=== PATIENT | female | born 1970 | race Caucasian/White ===

== ENCOUNTER → 2018-12-17 16:30 | Outpatient (CLI) | payer OTHER, SELFPAY ==
[2018-12-20 11:57] LABS: HPV Reflexed? NOT INDICATED
== END ==
PROVIDERS: Visit Provider Obstetrics & Gynecology
DX: Z12.4 Encounter for screening for malignant neoplasm of cervix (principal)
CPT/HCPCS: 88175; G0145

== ENCOUNTER → 2021-02-03 12:18 | Outpatient (CLI) | payer BC, SELFPAY ==
--- NOTE | 2021-02-03 12:23 | BI_ITS ---
MAMMOGRAPHY - BILATERAL DIAGNOSTIC REASON FOR EXAM: Female, 50 years old. One-week history of left breast discharge. PERTINENT HISTORY: Non-contributory. History of prior left surgical intervention of the duct. TECHNIQUE: Digital bilateral breast neil (3D mammographic acquisition) in the CC and MLO projections. 2-D mediolateral oblique (MLO) and craniocaudad (CC) views of both breasts were obtained. CAD: Full Field Digital Mammography with Computer Added Detection was performed. COMPARISON: Comparison is made with prior study dated 03/18/2014. FINDINGS: Breast Composition: The breasts are heterogeneously dense, which may obscure small masses. Asymmetry of breast tissue in the retroareolar region of the left breast. Correlation with ultrasound is recommended. A tissue clip marker is seen in the slightly upper lateral aspect of the left breast as well as in the superior lateral region of the periareolar area. No other significant abnormalities are identified. BI/DIAG MAMM W/CAD, BILAT IMPRESSION: Asymmetrical density in the retroareolar region of the left breast as described. With the patient''s history of breast discharge, correlation with ultrasound is recommended. Status post left breast biopsy. ASSESSMENT CATEGORY: BIRADS Category 0: Incomplete. Need additional imaging evaluation. A letter regarding these results will be sent to the patient by the facility within 30 days. Approximately 10% of breast cancers are not detected by mammography. A normal mammogram should not delay biopsy of a clinically suspicious abnormality. Electronically Signed: Warren Cruz MD at 13:55 EDT , Service support ,
--- NOTE | 2021-02-03 13:40 | US_ITS ---
STUDY: ULTRASOUND BREAST - LEFT REASON FOR EXAM: Female, 50 years old. Abnormal screening mammogram. TECHNIQUE: Axial and longitudinal images of the LEFT breast were performed with a high resolution ultrasound transducer. # OF IMAGES: 47 COMPARISON: Comparison is made with prior mammogram done earlier today. FINDINGS: LEFT Breast: There is a 4 mm x 5 mm x 3 mm hypoechoic nodule at the 12 o''clock position of the breast at 1 cm from the nipple. This is not a typical cyst. A biopsy is recommended. US/Breast Limited Unilateral IMPRESSION: 4 mm x 5 mm x 3 mm hypoechoic nodule at the 12 o''clock position of the breast at 17 from nipple. A biopsy is recommended. ASSESSMENT CATEGORY: BIRADS Category 2: Benign. A letter regarding these results will be sent to the patient by the facility within 30 days. Electronically Signed: Warren Cruz MD at 14:21 EDT , Service support ,
== END ==
PROVIDERS: Referring Provider Obstetrics & Gynecology; Visit Provider Obstetrics & Gynecology
DX: N64.52 Nipple discharge (principal); N63.21 Unspecified lump in the left breast, upper outer quadrant
CPT/HCPCS: 76642; 77062; 77066; G0279

== ENCOUNTER 2021-06-13 17:48 | Emergency (ER) | payer BC, SELFPAY ==
[2021-06-13 17:50] VITALS: BP 177/98; PULSE 93; RESP 18; TEMP 36.6; O2SAT 96; BMI 35.9
--- NOTE | 2021-06-13 19:30 | EKG12_ITS ---
Test Reason : DYSRHYTHMIA Blood Pressure : / mmHG Vent. Rate : 082 BPM Atrial Rate : 082 BPM P-R Int : 144 ms QRS Dur : 102 ms QT Int : 410 ms P-R-T Axes : 010 -25 008 degrees QTc Int : 479 ms Normal sinus rhythm Normal ECG Confirmed by FIOR MCINTOSH, KARO ([id number]), website/blog editor JOSE DE JESUS LIRA ([id number]) on 06/14/2021 1:25:46 PM Referred By: STONE Confirmed By:KARO CHILDRESS MD
--- NOTE | 2021-06-13 19:31 | EX.ED.DYSGE1 ---
HPI History of Present Illness Chief Complaint: Hypertension Detail of Chief Complaint: High blood pressure and nosebleeds Informant: patient Narrative Narrative: Patient presents to the emergency department complaint of elevated blood pressure that was noted today. Patient states that she had a nosebleed yesterday that stopped relatively quickly from the right side of her nose. Patient had another nosebleed today that again stopped relatively quickly but she went to the tent at the [place] where the [employer] [place] was and they checked her blood pressure and noted that it was elevated. While lying down at rest her pressure was 160 systolic but when she try to stand up and they were gone to discharge her her repeat blood pressure was 240/140. She denies chest pain or shortness of breath. She denies headache. Patient states that she has been under a lot of stress and has also broken out in the cold sores on her lips. She is currently not being treated for blood pressure. She does have history of narcolepsy and cataplexy and is currently being treated with Vyvanse. Patient normally does not get nosebleeds. Prior similar symptoms: No PFSH PFS Medical History (Updated 06/13/21 @ 21:[address] Lina Quiroga, DO) Narcolepsy Home Medications lisdexamfetamine [Vyvanse] 70 mg PO DAILY 06/13/21 [History Last Taken Unknown] lisinopril-hydrochlorothiazide 1 tab PO DAILY #30 tab 06/13/21 [Rx Last Taken Unknown] sodium oxybate [Xyrem] 500 mg PO BID 06/13/21 [History Last Taken Unknown] Allergy/AdvReac Type Severity Reaction Status Date / Time No Known Allergies Allergy Verified 06/13/21 19:10 Social History Smoking Status: Never smoker ROS ROS ED Constitutional Constitutional ED: Reports systems reviewed and no addt'l complaints, except as documented; Denies body ache(s), change in weight or chills Eyes Eyes: Denies acute decrease in peripheral vision, change in vision, double vision or loss of vision ENT ENT ED: Reports none and other Details: Nosebleed from right side of nose ; Denies ear pain, lip swelling, loss taste/smell, neck pain, otalgia or sore throat Cardiovascular Cardiovascular: Reports none; Denies abdominal pain, chest pain with activity, leg edema, lightheadedness, palpitations, rapid heart rate or syncope Respiratory/Chest Respiratory/Chest: Reports none; Denies change in mental status, dry cough, dyspnea, hemoptysis, shortness of breath at rest or shortness of breath with exertion Gastrointestinal Gastrointestinal: Reports none; Denies abdominal pain, change in stool character, diarrhea, hematemesis, hematochezia, melena, rectal bleeding or vomiting Genitourinary Genitourinary ED: Reports none; Denies abdominal discomfort, anuria, dysuria, genital pain or polyuria Musculoskeletal Musculoskeletal: Reports none; Denies arthralgias, back pain, difficulty walking, extremity pain, muscle weakness or myalgias Integumentary Reports none; Denies abscess or rash Neurologic Neurologic: Reports none and other Details: Migraines off and on ; Denies abnormal gait, confusion, focal weakness, frequent falls, headache(s), loss of vision, numbness, paresthesias, radicular pain, vertigo or weakness Psychiatric Psychiatric: Reports systems reviewed and no addt'l complaints, except as documented and none; Denies behavioral changes, confusion, difficulty concentrating, hallucinations, suicidal ideation, tactile hallucinations or visual hallucinations Endocrine Endocrinology: Denies none, cold intolerance, excessive sweating, fatigue or heat intolerance Hematologic/Lymphatic Hematologic/Lymphatic: Reports none; Denies anemia, easy bleeding or easy bruising Allergic/Immunologic Allergic/Immunologic ED: Denies as per HPI, none, lip swelling, mouth swelling, throat swelling, tongue swelling or hives EXAM Physical Exam Const Vital Signs: 06/13/21 17:50 06/13/21 19:12 06/13/21 19:49 Temperature 98 F Temperature Source Temporal Pulse Rate 93 88 Respiratory Rate 18 18 Respiratory Effort Normal Non-Labored Respiratory Pattern Normal Blood Pressure 177/98 H 170/97 H Blood Pressure Mean 124 121 Pulse Ox 96 100 Oxygen Delivery Method Room Air Room Air 06/13/21 21:00 Temperature Temperature Source Pulse Rate 77 Respiratory Rate 17 Respiratory Effort Respiratory Pattern Blood Pressure 175/94 H Blood Pressure Mean 121 Pulse Ox 95 Oxygen Delivery Method Room Air Positive well nourished and well developed General Appearance ED: well developed and NAD HEENT Reports TM's clear and moist mucous membranes HEENT Narrative: Patient has some dried blood in the right nasal vault without evidence of any active bleeding. I cannot appreciate the source of the bleeding. normocephalic and atraumatic; Negative for trauma or tenderness Tympanic Membrane ED: Yes TM's clear Eyes PERRL and EOMs intact bilaterally General Eye ED: Negative for pale conjunctiva or scleral icterus Neck no lymphadenopathy, supple and no JVD General: Negative for tenderness Chest Wall inspection of chest normal and palpation of chest normal Chest: Negative for tenderness Resp normal respiratory effort and clear to auscultation bilaterally Effort and Inspection: Negative for respiratory distress or pain with movement Auscultation: Negative for rhonchi, wheezes or diminished lung sounds Cardio regular rate, regular rhythm, S1 normal heart sound, S2 normal heart sound and no murmurs Peripheral Pulses: pulses 2+ throughout GI normal to inspection, nondistended, normoactive bowel sounds, soft to palpation, non-tender, non-distended and no masses Back/Spine no CVA tenderness and no thoracic nor lumbar tenderness Extremity normal to inspection General Extremety ED: Negative for edema General Extremity: Negative for edema Neuro oriented x3, CN's II-XII intact bilaterally, no sensory deficits noted and gait normal Sensorium / Orientation: awake, alert, oriented to person, oriented to place and oriented to time Motor Exam: strength 5/5 throughout and strength abnormal Psych mental status grossly normal Skin no rashes or lesions noted and no wounds MDM MDM MDM Narrative Medical decision making narrative: Patient's blood pressures remained steady without any treatment in 170s to 160 systolic over 90s diastolic. Work-up in the emergency department otherwise unremarkable. Case was discussed with primary care physician telephonic rn for no doc Dr. Reyes who will see patient in follow-up. I will start patient on lisinopril and hydrochlorothiazide combo. Patient advised to keep track of her blood pressures. Patient to return if chest pain, shortness of breath, severe headaches, or conditions worsen anyway. Lab Data Attestation: I reviewed the patient's lab results. Labs: Laboratory Results - last 24 hr 06/13/21 06/13/21 06/13/21 19:20 19:50 19:50 WBC 9.8 RBC 4.60 Hgb 12.9 Hct 39.7 MCV 86.3 MCH 28.0 MCHC 32.5 RDW Std Deviation 40.1 RDW Coeff of Emilee 12.7 Plt Count 343 MPV 9.7 Immature Gran % (Auto) 0.300 Neut % (Auto) 66.2 Lymph % (Auto) 26.2 Crowley % (Auto) 6.3 Eos % (Auto) 0.6 Baso % (Auto) 0.4 Absolute Neuts (auto) 6.5 Absolute Lymphs (auto) 2.57 Nucleated RBC % 0 Sodium 140 Potassium 4.2 Chloride 107 Carbon Dioxide 25.0 Anion Gap 8 BUN 13 Creatinine 0.78 Estim Creat Clear Calc 94.35 Est GFR (MDRD) Af Amer 101 Est GFR (MDRD) Non-Af 83 BUN/Creatinine Ratio 16.7 Glucose 103 Calcium 9.1 Troponin I High Sens 7 Urine Color Yellow Urine Clarity Clear Urine pH 7.0 Ur Specific Naylor 1.030 Urine Protein Negative Urine Glucose (UA) Normal Urine Ketones Negative Urine Occult Blood 10 H Urine Nitrite Negative Urine Bilirubin Negative Urine Urobilinogen Normal Ur Leukocyte Esterase 25 H Urine RBC 0 SEEN Urine WBC 0-5 SEEN Ur Squamous Epith Cells 0-5 SEEN Urine Bacteria 0 SEEN Urine Mucus 0 SEEN Radiography Chest X-Ray - ED: 1 View Diagnostic Testing: Radiology Impression Chest X-Ray 06/13/21 20:00 IMPRESSION: Normal x-ray examination of the chest. Electronically Signed: Viktor Moore DO at 21:16 EDT Tel [phone], Service support , 1 view chest x-ray obtained interpreted by myself as no acute disease process. EKG Initial EKG: Comments: Sinus rhythm with a ventricular rate of 82 bpm with no acute ST segment changes. Discharge Plan Triage Chief Complaint: Hypertension ED Provider: Lina Quiroga Dx/Rx/DC Orders Clinical Impression: Hypertension, Epistaxis Instructions: Nosebleed, ED Hypertension New Begin Treatment Prescriptions: New lisinopril-hydrochlorothiazide 10-12.5 mg tablet 1 tab PO DAILY Qty: 30 RF: 0 No Action Vyvanse 70 mg capsule 70 mg PO DAILY RF: 0 Xyrem 500 mg/mL solution 500 mg PO BID RF: 0 Primary Care Provider: Care Physician,No Primary Referrals: Amari Reyes DO [STAFF PHYSICIAN] - 3-5 Days Care Physician,No Primary [Primary Care Provider] - Disposition Disposition: Home, Self Care
[2021-06-13 19:49] VITALS: BP 170/97; PULSE 88; RESP 18; O2SAT 100
[2021-06-13 19:49] LABS: Bacteria 0 SEEN /hpf (None Seen); Mucous, Urine 0 SEEN /hpf (<or=2+); Red Blood Cells-Urine 0 SEEN /hpf (0-5)
[2021-06-13 19:53] LABS: Color, Urine Yellow (Yellow); Glucose, Dipstick Normal (Normal); Ketone-Dipstick Negative (Negative); Leukocyte Esterase-Dipstick 25 /ul (Negative); Nitrite-Dipstick Negative (Negative); Occult Blood-Urine 10 /ul (Negative); Protein-Dipstick Negative (Negative); Urine Bilirubin Dipstick Negative (Negative); Urine Clarity Clear (Clear); Urine Urobilinogen Normal (Normal)
[2021-06-13 19:57] LABS: Absolute Lymphocyte Count 2.57 X10^3/uL (0.83-4.51); Absolute Neutrophil Count 6.5 X10^3/uL (2.0-7.7); Basophil# 0.04 X10^3/uL; Basophil% 0.4 % (0-1); Eosinophil# 0.06 X10^3/uL; Eosinophils% 0.6 % (0-5); Hematocrit 39.7 % (37-47); Hemoglobin 12.9 g/dL (12.0-15.0); Lymphocyte # 2.57 X10^3/ul (0.83-4.51); Lymphocyte % 26.2 % (19-41); Mean Corp Hgb Conc 32.5 g/dL (32-36); Mean Corpuscular Volume 86.3 fL (81-99); Mean Platelet Vol. 9.7 fl (6.2-12.0); Monocyte# 0.62 X10^3/uL; Monocyte% 6.3 % (0-10); NRBC Flagged by Analyzer 0 % (0-5); Neutrophil # 6.49 X10^3/uL (2.7-7.7); Neutrophil % 66.2 % (47-70); Platelet Count 343 K/mm3 (150-450); RBC Distribution Width CV 12.7 % (11.6-14.6); RBC Distribution Width SD 40.1 fl (35.1-43.9); White Blood Count 9.8 K/mm3 (4.4-11.0)
--- NOTE | 2021-06-13 20:00 | RAD_ITS ---
STUDY: X-RAY CHEST REASON FOR EXAM: Female, 50 years old. Hypertension TECHNIQUE: Frontal view COMPARISON: 08/05/2015 FINDINGS: The lungs are clear and expanded. There is no demonstrated pleural abnormality. Normal size heart. Normal mediastinum and monica. Normal visualized pulmonary arteries. Normal visualized aortic arch and descending thoracic aorta. Mild degenerative changes of the thoracic spine. Normal visualized ribs, clavicles, and shoulders. There is no demonstrated abnormality of the visualized soft tissue structures of the upper abdomen. RAD/Chest 1 View (Portable) IMPRESSION: Normal x-ray examination of the chest. Electronically Signed: Viktor Moore DO at 21:16 EDT Tel [phone], Service support ,
[2021-06-13 20:09] LABS: Squamous Epithelial Cells - UA 0-5 SEEN /hpf (5-10); White Blood Cells 0-5 SEEN /hpf (0-5)
[2021-06-13 20:19] LABS: Anion Gap 8 (5-15); BUN 13 mg/dL (7-18); BUN/Creat Ratio 16.7 RATIO (10-20); Calcium,Total 9.1 mg/dL (8.5-10.1); Chloride 107 mmol/L (98-107); Creatinine, Serum 0.78 mg/dL (0.55-1.02); EST Glomerular Filtration Rate 83 mL/min (>60); Est Glom Filt Rate - Afr Amer 101 mL/min (>60); Estimated Creatinine Clearance 94.35 ml/min; Glucose 103 mg/dL (74-106); Potassium 4.2 mmol/L (3.5-5.1); Sodium Level 140 mmol/L (136-145); Troponin-I HS 7 pg/mL (3.0-54.0)
[2021-06-13] MEDS: 0.9% Normal Saline 1,000 ML 1000 ML IV (20:35)
[2021-06-13 21:00] VITALS: BP 175/94; PULSE 77; RESP 17; O2SAT 95
[2021-06-13 22:02] VITALS: BP 179/100; PULSE 78; RESP 17; O2SAT 99
[2021-06-13] MEDS: Lisinopril 10 MG Tablet PO (22:21)
[2021-06-13] MEDS: hydroCHLOROthiazide 12.5mg 12.5 MG PO (22:21)
== END 2021-06-13 22:24 | disposition home or self-care (01) ==
PROVIDERS: Emergency Provider Emergency Medicine
DX: I10 Essential (primary) hypertension (principal); R04.0 Epistaxis; G47.411 Narcolepsy with cataplexy; Z79.899 Other long term (current) drug therapy
CPT/HCPCS: 71045; 80048; 81001; 84484; 85025; 93005; 96360; 99285; J7030; A4216

== ENCOUNTER → 2021-06-28 | Outpatient (CLI) | payer BC, SELFPAY ==
[2021-07-03 13:22] LABS: HPV Reflexed? NOT INDICATED
== END | disposition home or self-care (01) ==
LOC: LABSPEC 16:55
PROVIDERS: Visit Provider Obstetrics & Gynecology
DX: Z12.4 Encounter for screening for malignant neoplasm of cervix (principal)
CPT/HCPCS: 88175; G0145

== ENCOUNTER → 2025-07-27 | Outpatient (CLI) | payer BC, SELFPAY | END | disposition home or self-care (01) | LOC: LABSPEC 13:20 | PROVIDERS: Referring Provider Family Medicine; Visit Provider Family Medicine | DX: L29.0 Pruritus ani (principal); B83.9 Helminthiasis, unspecified ==